=== PATIENT | male | born 1950 | race Caucasian/White ===

== ENCOUNTER 2018-04-28 10:22 | Inpatient (IN) | payer MEDICARE, OTHER ==
[~2018-04-28] VITALS: Ht 170.2 cm; Wt 88.9 kg
[2018-04-28] MEDS ORDERED: SODIUM CHLORIDE 0.9% 1000ML 1,000 ML IV STA (10:43)
[2018-04-28] MEDS ORDERED: ONDANSETRON HCL INJ 2MG/ML 2ML 2 MG/ML VIAL IV STA (10:43)
[2018-04-28] MEDS ORDERED: MORPHINE SULFATE INJ 4 MG/ML INJ 1ML IV ONE (10:55)
[2018-04-28 11:13] LABS: BASOPHILS # (AUTO) 0.1 (0.0-0.1); BASOPHILS % 0.5 % (0.0-1.0); EOSINOPHILS # (AUTO) 0.3 (0.0-0.4); EOSINOPHILS % 1.4 % (0.0-6.0); HEMATOCRIT 37.6 % (38.2-49.6); LYMPHOCYTES # (AUTO) 2.5 (1.0-3.2); LYMPHOCYTES % 12.9 % (18.0-39.1); MEAN CORPUSCULAR HGB CONC 34.6 g/dL (31-35); MEAN CORPUSCULAR VOLUME 89.5 fL (81-99); MONOCYTES # (AUTO) 1.5 (0.2-0.8); MONOCYTES % 7.9 % (4.4-11.3); NEUTROPHILS # (AUTO) 14.5 (2.1-6.9); NEUTROPHILS % 76.1 % (38.7-80.0); PLATELET COUNT 407 x10e3/uL (140-360); RED CELL DISTRIBUTION WIDTH 12.9 % (11.7-14.4)
[2018-04-28] MEDS ORDERED: PLAVIX75 MG PO (11:18)
[2018-04-28] MEDS ORDERED: LISINOPRIL10 MG PO (11:18)
[2018-04-28 11:22] LABS: INR 0.85; PROTHROMBIN TIME 12.4 seconds (11.9-14.5)
[2018-04-28 11:23] LABS: PARTIAL THROMBOPLASTIN TIME 25.7 seconds (23.8-35.5)
[2018-04-28 11:32] LABS: ALANINE AMINOTRANSFERASE 22 IU/L (0-55); ALBUMIN 3.3 g/dL (3.5-5.0); ALBUMIN/GLOBULIN RATIO 0.8 (0.8-2.0); ALKALINE PHOSPHATASE 57 IU/L (40-150); ANION GAP 18.9 mmol/L (8-16); BLOOD UREA NITROGEN 26 mg/dL (7-26); BUN/CREATININE RATIO 30 (6-25); CALCIUM 9.9 mg/dL (8.4-10.2); CARBON DIOXIDE 28 mmol/L (22-29); CHLORIDE 97 mmol/L (98-107); CREATINE KINASE 171 IU/L (30-200); CREATININE, SERUM 0.86 mg/dL (0.72-1.25); EST GLOMERULAR FILTRATION RATE > 60 ML/MIN (60-); GLUCOSE 129 mg/dL (74-118); SODIUM 142 mmol/L (136-145)
[2018-04-28 11:33] LABS: CHOL/HDL RATIO 3.4 (3.9-4.7)
[2018-04-28 11:34] LABS: POTASSIUM 1.9 mmol/L (3.5-5.1)
--- NOTE | 2018-04-28 11:34 | NUR ---
NOTIFIED DR MONTANA K+ 1.9
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
[2018-04-28] MEDS ORDERED: POTASSIUM CHLORIDE 10MEQ/100ML 10 MEQ in POTASSIUM CHLORIDE 10MEQ/100ML 100 ML IV ONE (12:12)
--- NOTE | 2018-04-28 12:12 | NUR ---
NOTIFIED DR MONTANA REPEAT POTASSIUM IS 2.0
[2018-04-28] MEDS ORDERED: POTASSIUM CHLORIDE 20MEQ/15ML UDC NG ONE (12:15)
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
[2018-04-28] MEDS ORDERED: POTASSIUM CHLORIDE 20MEQ/15ML UDC PO ONE ×2 (12:55→14:30)
[2018-04-28] MEDS ORDERED: SODIUM CHLORIDE FLUSH 10 ML SYR INJ PRN (13:15)
[2018-04-28] MEDS ORDERED: MORPHINE SULFATE INJ 4 MG/ML INJ 1ML IV PRN (13:15)
[2018-04-28] MEDS ORDERED: ONDANSETRON HCL INJ 2MG/ML 2ML 2 MG/ML VIAL IV PRN (13:15)
[2018-04-28] MEDS: POTASSIUM CHLORIDE 10MEQ/100ML 100 ML IV SCH ×4 (13:17→18:11)
[2018-04-28] MEDS ORDERED: KETOROLAC TROMETHAMINE 30 MG/ML VIAL IV PRN ×2 (14:30→18:30)
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
[2018-04-28 15:09] VITALS: BP 102/59
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
[2018-04-28 15:27] VITALS: BP 102/59
[2018-04-28 15:35] VITALS: BP 102/59
[2018-04-28] MEDS ORDERED: IOPAMIDOL 370 MG/ML 200 ML INFUS..BTL INJ ONE (17:11)
[2018-04-28] MEDS ORDERED: POTASSIUM CHLORIDE 20 MEQ TAB CR PO NR (18:30)
[2018-04-28] MEDS ORDERED: KETOROLAC TROMETHAMINE 30 MG/ML VIAL IV NR (18:30)
--- NOTE | 2018-04-28 19:10 | NUR ---
Report given to oncoming shift and walking rounds done. Call hodge within reach.
[2018-04-28 19:24] LABS: ANION GAP 14.2 mmol/L (8-16); BLOOD UREA NITROGEN 25 mg/dL (7-26); BUN/CREATININE RATIO 32 (6-25); CALCIUM 8.7 mg/dL (8.4-10.2); CARBON DIOXIDE 27 mmol/L (22-29); CHLORIDE 102 mmol/L (98-107); CREATININE, SERUM 0.78 mg/dL (0.72-1.25); EST GLOMERULAR FILTRATION RATE > 60 ML/MIN (60-); GLUCOSE 89 mg/dL (74-118); POTASSIUM 3.2 mmol/L (3.5-5.1); SODIUM 140 mmol/L (136-145)
[2018-04-28 19:37] LABS: CREATINE KINASE 456 IU/L (30-200)
[2018-04-28 20:00] VITALS: BP 81/52
--- NOTE | 2018-04-28 20:01 | NUR ---
Dr. Niesha Reed notified of elevated CK and CK-MB
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
[2018-04-28] MEDS: TRAMADOL HCL 50 MG TAB PO PRN (23:12)
[2018-04-29] VITALS (16 sets, daily range): BP systolic 92–106; BP diastolic 51–67
[2018-04-29] MEDS ORDERED: SODIUM CHLORIDE 0.9% 1000ML 1,000 ML ONE ×2 (03:39→06:57)
[2018-04-29 05:11] LABS: BASOPHILS % 0.3 % (0.0-1.0); EOSINOPHILS # (AUTO) 0.2 (0.0-0.4); EOSINOPHILS % 1.4 % (0.0-6.0); HEMATOCRIT 30.8 % (38.2-49.6); LYMPHOCYTES # (AUTO) 1.9 (1.0-3.2); LYMPHOCYTES % 13.6 % (18.0-39.1); MEAN CORPUSCULAR HEMOGLOBIN 30.5 pg (28-32); MEAN CORPUSCULAR HGB CONC 33.4 g/dL (31-35); MEAN CORPUSCULAR VOLUME 91.1 fL (81-99); MONOCYTES # (AUTO) 1.5 (0.2-0.8); MONOCYTES % 10.8 % (4.4-11.3); NEUTROPHILS # (AUTO) 10.2 (2.1-6.9); NEUTROPHILS % 73.5 % (38.7-80.0); PLATELET COUNT 281 x10e3/uL (140-360); RED BLOOD COUNT 3.38 x10e6/uL (4.3-5.7); RED CELL DISTRIBUTION WIDTH 13.2 % (11.7-14.4)
[2018-04-29] MEDS: TRAMADOL HCL 50 MG TAB PO PRN ×3 (05:19→18:54)
[2018-04-29] MEDS: KETOROLAC TROMETHAMINE 30 MG/ML VIAL IV SCH ×5 (05:19→18:54)
[2018-04-29 05:31] LABS: HEMOGLOBIN 10.3 g/dL (14.0-18.0)
[2018-04-29 05:55] LABS: ANION GAP 11.8 mmol/L (8-16); BLOOD UREA NITROGEN 23 mg/dL (7-26); BUN/CREATININE RATIO 31 (6-25); CALCIUM 8.2 mg/dL (8.4-10.2); CARBON DIOXIDE 27 mmol/L (22-29); CHLORIDE 103 mmol/L (98-107); CREATININE, SERUM 0.75 mg/dL (0.72-1.25); EST GLOMERULAR FILTRATION RATE > 60 ML/MIN (60-); GLUCOSE 77 mg/dL (74-118); SODIUM 139 mmol/L (136-145)
[2018-04-29 05:58] LABS: POTASSIUM 2.8 mmol/L (3.5-5.1)
--- NOTE | 2018-04-29 06:10 | NUR ---
NOTIFIED PATIENT OF 2.8 K+ AND LEFT MESSAGE FOR CALLBACK WITH DR. Ten ISABEL'S ANSWERING SERVICE. WAITING FOR RESPONSE.
[2018-04-29 06:17] LABS: CREATINE KINASE 384 IU/L (30-200)
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
[2018-04-29] MEDS ORDERED: LIDOCAINE HCL 2% LOCAL 20 ML VIAL ONE (06:50)
[2018-04-29] MEDS ORDERED: IOPAMIDOL 370 MG/ML 200 ML INFUS..BTL INJ ONE ×2 (06:50→20:31)
[2018-04-29] MEDS ORDERED: HEPARIN SOD/SOD CHLORIDE 2,000 ML ONE (06:50)
[2018-04-29] MEDS ORDERED: HEPARIN SOD (PORCINE) 1000 UNIT/ML 30ML ONE (06:56)
[2018-04-29] MEDS ORDERED: FENTANYL CITRATE/PF 100MCG/2 ML INJ ONE (06:56)
[2018-04-29] MEDS ORDERED: MIDAZOLAM HCL 2 MG/2 ML VIAL ONE (06:56)
[2018-04-29] MEDS ORDERED: NITROGLYCERIN/D5W 200 MCG/ML 250 ML ONE (06:57)
[2018-04-29] MEDS ORDERED: VERAPAMIL HCL 2.5 MG/ML 2 ML VIAL ONE (06:57)
--- NOTE | 2018-04-29 07:29 | NUR ---
patient off unit for procedure. called back, aware of K. new orders recvd
[2018-04-29] MEDS ORDERED: MORPHINE SULFATE INJ 4 MG/ML INJ 1ML IV PRN (08:00)
[2018-04-29] MEDS ORDERED: ONDANSETRON HCL INJ 2MG/ML 2ML 2 MG/ML VIAL IV PRN (08:00)
[2018-04-29] MEDS ORDERED: HYDROCODONE/APAP 5MG-325MG TAB PO PRN (08:00)
[2018-04-29] MEDS ORDERED: POTASSIUM CHLORIDE 10MEQ EA PO NR ×2 (08:15→11:15)
--- NOTE | 2018-04-29 08:16 | Operative Report ---
DATE OF PROCEDURE: April 29, 2018 INDICATIONS: Unstable angina. PROCEDURES PERFORMED 1. Left heart catheterization, selective coronary angiography. 2. Deployment of right wrist transradial band. COMPLICATIONS: None. RECOMMENDATIONS: Medical therapy. Access was obtained in the right radial artery using ultrasound guidance. A 5-Rwandan sheath was placed. Diagnostic coronary angiogram revealed patent left main. Left anterior descending artery proximal 50% to 60% with aneurysmal segment. Distal left anterior descending artery had tandem 90% stenosis, 1.5-mm vessel. Circumflex moderate 30% to 50% stenosis. Right coronary artery moderate 30% to 50% stenosis. No intervention was deemed necessary. Right wrist sheath was removed and TR band applied. Patient transferred to the floor in stable condition. Job#: [id number]
[2018-04-29] MEDS ORDERED: POTASSIUM CHLORIDE 20MEQ/100ML 300 ML IV ONE (08:30)
--- NOTE | 2018-04-29 08:41 | Progress Note ---
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 He underwent coronary angiography today with moderate coronary artery disease. PHYSICAL EXAMINATION: VITAL SIGNS: Afebrile, heart rate 65, blood pressure 92/55, O2 sat 97%. CARDIOVASCULAR: Regular rhythm. No murmurs or gallops. LUNGS: Clear to auscultation bilaterally. ABDOMEN: Soft. Hemoglobin is 10.3, WBC count is now 13,000. Potassium 2.8. Cardiac enzymes are negative. CPK is elevated. Imaging of his chest was reviewed. ASSESSMENT: Moderate coronary artery disease. RECOMMENDATIONS: Initiation of statin therapy and aspirin, followed by evaluation for anemia. I thank Dr. Reed for this consultation. Job#: [id number]
--- NOTE | 2018-04-29 09:00 | NUR ---
pt still off unit
--- NOTE | 2018-04-29 09:15 | NUR ---
0915am Received report from Steph RN Ranch Manager nurse Identifierx2 checked. [facility] medical rx. Rt arm iv site w/o s/s infiltration. Back to baseline PAULETTE remains allittle drowsy 0x4. Resp shallow and regular. 98% sat on room air. Abd soft and non tender denies necessary to defecate or urinate. Abram femoral pulses present. Rt TRband in titration mode with pos 7cc. no signs bleeding or hematoma, Positive radial pulse, Call kitchen for "regular lent diet" no meat or milk products. Denies c/o CP or SOB pt is in sinus bradycardia no ectopics vs stable.
--- NOTE | 2018-04-29 09:45 | NUR ---
0945 TR band titration completed. No signs of bleeding or hematoma. sterile 2x2 and tegederm with coban Arm splint in place for pt safety.Called report to Luz DAVALOS vs stable has meal sent to floor face to face report to nurse on arrival to 184. Transferred per bed with zoll and tele box in place. Report to design technician on arrival to floor care. Pt give call light ,side rails up and requested to call for nurse 1st ambulation with caution no pressure to right wrist. Alexander DAVALOS ,Acid Washer Operator Recovery Nurse
--- NOTE | 2018-04-29 10:02 | NUR ---
pt returned from cath, alert and oriented. fatigued s/p cath. radial site CDI, pt aware to limit use on right hand. will continue to monitor.
[2018-04-29 10:13] LABS: CHOL/HDL RATIO 3.2 (3.9-4.7)
[2018-04-29 10:34] LABS: FREE THYROXINE INDEX 2.7168 (1.4-3.8); THYROID STIMULATING HORMONE 0.813 uIU/mL (0.350-4.940)
[2018-04-29] MEDS: SODIUM CHLORIDE 0.9% 1000ML 1,000 ML IV SCH ×2 (11:11→18:12)
--- NOTE | 2018-04-29 11:23 | NUR ---
dr holcomb on unit, aware of pt vs. 250 bolus ordered and admin.
[2018-04-29 11:28] LABS: % IRON SATURATION 18 % (15-50); IRON 54 ug/dL (65-175); TOTAL IRON BINDING CAPACITY 294 ug/dL (261-478); TRANSFERRIN 210 mg/dL (174-364)
[2018-04-29] MEDS ORDERED: POTASSIUM CHLORIDE 20 MEQ TAB CR PO STA (15:34)
--- NOTE | 2018-04-29 15:41 | NUR ---
CASE MANAGEMENT INITIAL ASSESSMENT Supervisor Assembly Department to bedside to discuss plan of care with patient/family. CM/SW role and care transitions discussed. Anticipated discharge plan discussed along with duration of care. CM/SW discussed patients right to make decisions in care. CM/SW work hours given. Patient lives: IN OWN HOME WITH FAMILY Admit/Transfer: VIA ED FROM HOME POA/Emergency contact: BROTHER ERVIN WEND Current/Previous Home Health: NONE PCP/Follow-up Care: ERVIN ISABEL Current/Previous DME: NONE Other Services: NONE Employment Status: [employer] Areas of Concerns: NONE Referral Needs: NONE Education Needs: NONE IMM/YOO given and signed (if applicable): YOO Goal for discharge: RETURN HOME INDEPENDENTLY CM/SW left business card at the bedside with contact information. Name and number was also written on the patients whiteboard. Patient verbalized understanding of discussion. CM will follow-up with ongoing discharge and transition of care needs.
--- NOTE | 2018-04-29 18:43 | NUR ---
dr mckay aware on new K level 3.8, stated ok but wants ct results before possible dc. pt wanting to dc
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
[2018-04-29] MEDS ORDERED: CRESTOR10 MG PO (19:39)
[2018-04-29] MEDS ORDERED: ULTRAM50 MG PO (19:43)
[2018-04-29] MEDS ORDERED: NAPROXEN250 MG PO (19:44)
[2018-04-29] MEDS ORDERED: POTASSIUM CHLO20 ME1 PO (19:45)
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
[2018-04-29] MEDS ORDERED: SODIUM CHLORIDE 0.9% 50ML 50 ML ONE (20:31)
[2018-04-29] MEDS ORDERED: ATORVASTATIN 20 MG TAB PO SCH (21:00)
[2018-04-29] MEDS ORDERED: CRESTOR 10MG PO SCH (21:00)
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
== END 2018-04-29 20:20 | disposition home or self-care (01) | DRG 287 ==
LOC: ER 10:22 → IMCU 15:14 → OBSVTOIN 04-29 12:21
PROC: 4A023N7 Measurement of Cardiac Sampling and Pressure, Left Heart, Percutaneous Approach (ICD-10-PCS; principal; 2018-04-29)
PROC: B2111ZZ Fluoroscopy of Multiple Coronary Arteries using Low Osmolar Contrast (ICD-10-PCS; 2018-04-29)
DX: I25.110 Atherosclerotic heart disease of native coronary artery with unstable angina pectoris (principal); S22.21XA Fracture of manubrium, initial encounter for closed fracture; E87.6 Hypokalemia; V43.52XA Car driver injured in collision with other type car in traffic accident, initial encounter; Y92.410 Unspecified street and highway as the place of occurrence of the external cause; K52.9 Noninfective gastroenteritis and colitis, unspecified; S29.9XXA Unspecified injury of thorax, initial encounter; E88.09 Other disorders of plasma-protein metabolism, not elsewhere classified; M47.9 Spondylosis, unspecified; M50.31 Other cervical disc degeneration, high cervical region; D72.828 Other elevated white blood cell count; R77.1 Abnormality of globulin; I87.8 Other specified disorders of veins; D50.0 Iron deficiency anemia secondary to blood loss (chronic); D64.9 Anemia, unspecified
CPT/HCPCS: 36415; 71275; 72125; 74177; 80048; 80053; 80061; 82550; 82553; 82607; 83036; 83540; 83735; 84132; 84436; 84443; 84466; 84479; 84484; 85025; 85610; 85651; 85730; 86039; 86140; 93005; 93306; 93454; 99284; C1887; G0378; J1644; J1885; J2001; J2250; J2270; J2405; J3480; J7030; Q9967

== ENCOUNTER 2020-05-27 21:44 | Inpatient (IN) | payer MEDICARE, BC ==
[~2020-05-27] VITALS: Ht 170.2 cm; Wt 88.9 kg
[~2020-05-27 21:44] MED LIST: CRESTOR10 MG PO; LISINOPRIL10 MG PO; NAPROXEN250 MG PO; PLAVIX75 MG PO; POTASSIUM CHLO20 ME1 PO; ULTRAM50 MG PO
[2020-05-27 21:59] LABS: BASOPHILS % 0.5 % (0.0-1.0); EOSINOPHILS % 0.4 % (0.0-6.0); HEMATOCRIT 35.4 % (38.2-49.6); HEMOGLOBIN 11.8 g/dL (14.0-18.0); LYMPHOCYTES # (AUTO) 1.3 (1.0-3.2); LYMPHOCYTES % 16.9 % (18.0-39.1); MEAN CORPUSCULAR HEMOGLOBIN 30.6 pg (28-32); MEAN CORPUSCULAR HGB CONC 33.3 g/dL (31-35); MEAN CORPUSCULAR VOLUME 91.9 fL (81-99); MONOCYTES # (AUTO) 2.2 (0.2-0.8); MONOCYTES % 28.1 % (4.4-11.3); NEUTROPHILS # (AUTO) 4.2 (2.1-6.9); NEUTROPHILS % 53.7 % (38.7-80.0); PLATELET COUNT 179 x10e3/uL (140-360); RED BLOOD COUNT 3.85 x10e6/uL (4.3-5.7); RED CELL DISTRIBUTION WIDTH 13.7 % (11.7-14.4)
[2020-05-27] MEDS ORDERED: REMDESIVIR 200MG/NS 100ML 200 MG in SODIUM CHLORIDE 0.9% 100 ML 100 ML IV ONE (22:00)
[2020-05-27] MEDS ORDERED: ACETAMINOPHEN 325 MG TAB PO PRN (22:00)
[2020-05-27] MEDS ORDERED: CEFTRIAXONE SOD 1 GM/NS 50 ML 50 ML IV ONE (22:00)
[2020-05-27] MEDS ORDERED: ASPIRIN 81 MG CHEW TAB PO ONE (22:00)
[2020-05-27] MEDS ORDERED: BAMLANIVIMAB 700 MG/20 ML VIAL IV ONE (22:00)
[2020-05-27 22:18] LABS: CREATINE KINASE MB < 1.00 ng/mL (0-4.3)
[2020-05-27 22:26] LABS: ALANINE AMINOTRANSFERASE 11 IU/L (0-55); ALBUMIN 3.2 g/dL (3.5-5.0); ALKALINE PHOSPHATASE 41 IU/L (40-150); ANION GAP 11.5 mmol/L (8-16); BLOOD UREA NITROGEN 17 mg/dL (7-26); BUN/CREATININE RATIO 20 (6-25); CALCIUM 8.1 mg/dL (8.4-10.2); CARBON DIOXIDE 26 mmol/L (22-29); CHLORIDE 106 mmol/L (98-107); CREATINE KINASE 74 IU/L (30-200); CREATININE, SERUM 0.83 mg/dL (0.72-1.25); EST GLOMERULAR FILTRATION RATE > 60 ML/MIN (60-); GLUCOSE 91 mg/dL (74-118); POTASSIUM 3.5 mmol/L (3.5-5.1); SODIUM 140 mmol/L (136-145)
[2020-05-28] VITALS (10 sets, daily range): BP systolic 105–139; BP diastolic 53–82
[2020-05-28] MEDS ORDERED: SODIUM CHLORIDE 0.9% 250ML 250 ML ONE (01:04)
[2020-05-28] MEDS: PIPER-TAZ 3.375 GM 50 ML IV SCH ×5 (01:06→23:57)
[2020-05-28] MEDS: NAPROXEN 250 MG TAB PO SCH ×3 (01:16→23:57)
[2020-05-28 05:50] LABS: BASOPHILS % 0.4 % (0.0-1.0); HEMATOCRIT 39.6 % (38.2-49.6); HEMOGLOBIN 12.6 g/dL (14.0-18.0); LYMPHOCYTES # (AUTO) 0.9 (1.0-3.2); LYMPHOCYTES % 10.3 % (18.0-39.1); MEAN CORPUSCULAR HEMOGLOBIN 30.4 pg (28-32); MEAN CORPUSCULAR HGB CONC 31.8 g/dL (31-35); MEAN CORPUSCULAR VOLUME 95.7 fL (81-99); MONOCYTES # (AUTO) 0.4 (0.2-0.8); MONOCYTES % 4.2 % (4.4-11.3); NEUTROPHILS # (AUTO) 7.3 (2.1-6.9); NEUTROPHILS % 84.9 % (38.7-80.0); PLATELET COUNT 175 x10e3/uL (140-360); RED BLOOD COUNT 4.14 x10e6/uL (4.3-5.7); RED CELL DISTRIBUTION WIDTH 13.7 % (11.7-14.4)
[2020-05-28] MEDS: TRAMADOL HCL 50 MG TAB PO SCH ×4 (06:00→23:57)
[2020-05-28 06:34] LABS: ALANINE AMINOTRANSFERASE 12 IU/L (0-55); ALBUMIN 3.2 g/dL (3.5-5.0); ALKALINE PHOSPHATASE 38 IU/L (40-150); ANION GAP 12.6 mmol/L (8-16); BLOOD UREA NITROGEN 16 mg/dL (7-26); BUN/CREATININE RATIO 21 (6-25); CALCIUM 8.2 mg/dL (8.4-10.2); CARBON DIOXIDE 25 mmol/L (22-29); CHLORIDE 107 mmol/L (98-107); CREATININE, SERUM 0.76 mg/dL (0.72-1.25); EST GLOMERULAR FILTRATION RATE > 60 ML/MIN (60-); GLUCOSE 152 mg/dL (74-118); POTASSIUM 3.6 mmol/L (3.5-5.1); SODIUM 141 mmol/L (136-145)
[2020-05-28] MEDS ORDERED: REMDESIVIR 200MG/NS 100ML 200 MG in SODIUM CHLORIDE 0.9% 100 ML 100 ML IV ONE (07:00)
[2020-05-28] MEDS ORDERED: REMDESIVIR 100MG/NS 100ML 100 MG in SODIUM CHLORIDE 0.9% 100 ML 100 ML IV SCH (07:00)
[2020-05-28 07:39] LABS: CREATINE KINASE MB 0.5 ng/mL (0-5.0)
[2020-05-28] MEDS: POTASSIUM CHLORIDE 20 MEQ TAB CR PO SCH (08:44)
[2020-05-28] MEDS: CLOPIDOGREL BISULFATE 75 MG TAB PO SCH (08:44)
[2020-05-28] MEDS ORDERED: LISINOPRIL 10 MG TAB PO SCH (09:00)
[2020-05-28] MEDS ORDERED: SIMVASTATIN 20 MG TAB PO SCH (09:00)
[2020-05-28] MEDS ORDERED: DEXAMETHASONE SOD PHOS 10 MG/1 ML VIAL IV ONE (09:00)
[2020-05-28] MEDS: AZITHROMYCIN 500MG/NS 250 ML 250 ML IV SCH (10:09)
[2020-05-28] MEDS ORDERED: DEXAMETHASONE SOD PHOS INJ 4 MG/ML VIAL IV SCH (10:30)
[2020-05-28] MEDS ORDERED: GADOBENATE DIMEGLUMINE 1 ML IV ONE (12:39)
[2020-05-28 15:34] LABS: CREATINE KINASE MB 0.7 ng/mL (0-5.0)
[2020-05-28] MEDS: ASPIRIN 81 MG CHEW TAB PO SCH (17:40)
[2020-05-28] MEDS: ENOXAPARIN SOD INJ 40 MG/0.4 ML SYR SC SCH (17:40)
[2020-05-28] MEDS: DEXAMETHASONE SOD PHOS 10 MG/1 ML VIAL IV SCH (22:36)
[2020-05-29] VITALS (8 sets, daily range): BP systolic 127–146; BP diastolic 75–88
[2020-05-29] MEDS ORDERED: LISINOPRIL 10 MG TAB PO ONE ×3 (00:45→21:45)
[2020-05-29] MEDS: TRAMADOL HCL 50 MG TAB PO SCH ×4 (06:00→23:55)
[2020-05-29] MEDS: PIPER-TAZ 3.375 GM 50 ML IV SCH ×4 (06:01→23:55)
[2020-05-29] MEDS: REMDESIVIR 100MG/NS 100ML 100 MG IV SCH (07:01)
[2020-05-29] MEDS: ASPIRIN 81 MG CHEW TAB PO SCH (09:09)
[2020-05-29] MEDS: CLOPIDOGREL BISULFATE 75 MG TAB PO SCH (09:10)
[2020-05-29] MEDS: POTASSIUM CHLORIDE 20 MEQ TAB CR PO SCH (09:10)
[2020-05-29] MEDS: LISINOPRIL 10 MG TAB PO SCH ×2 (09:11→17:02)
[2020-05-29] MEDS: AZITHROMYCIN 500MG/NS 250 ML 250 ML IV SCH (09:11)
[2020-05-29] MEDS: DEXAMETHASONE SOD PHOS 10 MG/1 ML VIAL IV SCH ×2 (09:13→20:50)
[2020-05-29] MEDS: CHOLECALCIFEROL 1,000 UNIT TAB PO SCH (10:12)
[2020-05-29] MEDS: ASCORBIC ACID 500 MG TAB PO SCH ×2 (10:12→17:02)
[2020-05-29] MEDS: ZINC SULFATE 50 MG CAP PO SCH (10:13)
[2020-05-29] MEDS: FAMOTIDINE 20 MG/2 ML VIAL IV SCH ×2 (12:41→20:50)
[2020-05-29] MEDS: NAPROXEN 250 MG TAB PO SCH ×2 (12:41→23:55)
[2020-05-29] MEDS: ENOXAPARIN SOD INJ 40 MG/0.4 ML SYR SC SCH (17:02)
[2020-05-29] MEDS ORDERED: SIMVASTATIN 20 MG TAB PO SCH (21:00)
[2020-05-29] MEDS: CRESTOR 10MG PO SCH (21:58)
[2020-05-30] VITALS (8 sets, daily range): BP systolic 125–166; BP diastolic 79–100
[2020-05-30] MEDS: TRAMADOL HCL 50 MG TAB PO SCH ×3 (05:47→17:48)
[2020-05-30] MEDS: PIPER-TAZ 3.375 GM 50 ML IV SCH ×3 (06:04→17:48)
[2020-05-30] MEDS: REMDESIVIR 100MG/NS 100ML 100 MG IV SCH (06:35)
[2020-05-30 07:10] LABS: BASOPHILS % 0.1 % (0.0-1.0); HEMATOCRIT 39.8 % (38.2-49.6); HEMOGLOBIN 12.9 g/dL (14.0-18.0); LYMPHOCYTES # (AUTO) 0.9 (1.0-3.2); LYMPHOCYTES % 6.2 % (18.0-39.1); MEAN CORPUSCULAR HEMOGLOBIN 30.6 pg (28-32); MEAN CORPUSCULAR HGB CONC 32.4 g/dL (31-35); MEAN CORPUSCULAR VOLUME 94.5 fL (81-99); MONOCYTES # (AUTO) 0.8 (0.2-0.8); MONOCYTES % 5.2 % (4.4-11.3); NEUTROPHILS # (AUTO) 12.7 (2.1-6.9); NEUTROPHILS % 87.9 % (38.7-80.0); PLATELET COUNT 85 x10e3/uL (140-360); RED BLOOD COUNT 4.21 x10e6/uL (4.3-5.7); RED CELL DISTRIBUTION WIDTH 13.5 % (11.7-14.4)
[2020-05-30 07:36] LABS: ANION GAP 12.8 mmol/L (8-16); BLOOD UREA NITROGEN 29 mg/dL (7-26); BUN/CREATININE RATIO 38 (6-25); CALCIUM 8.2 mg/dL (8.4-10.2); CARBON DIOXIDE 25 mmol/L (22-29); CHLORIDE 107 mmol/L (98-107); CHOL/HDL RATIO 2.8 (3.9-4.7); CREATININE, SERUM 0.76 mg/dL (0.72-1.25); EST GLOMERULAR FILTRATION RATE > 60 ML/MIN (60-); GLUCOSE 119 mg/dL (74-118); POTASSIUM 3.8 mmol/L (3.5-5.1); SODIUM 141 mmol/L (136-145)
[2020-05-30 07:54] LABS: B-TYPE NATRIURETIC PEPTIDE2 328.4 pg/mL (0-100)
[2020-05-30 07:58] LABS: FERRITIN 135.87 ng/mL (21.81-274.66)
[2020-05-30 08:12] LABS: FREE THYROXINE INDEX 2.2098 (1.4-3.8); THYROID STIMULATING HORMONE 0.091 uIU/mL (0.350-4.940)
[2020-05-30 08:13] LABS: FREE T4 (FREE THYROXINE) 1.05 ng/dL (0.8-1.8); THYROID STIMULATING HORMONE 0.092 uIU/mL (0.350-4.940)
[2020-05-30] MEDS: ASPIRIN 81 MG CHEW TAB PO SCH (09:15)
[2020-05-30] MEDS: FAMOTIDINE 20 MG/2 ML VIAL IV SCH ×2 (09:15→20:47)
[2020-05-30] MEDS: DEXAMETHASONE SOD PHOS 10 MG/1 ML VIAL IV SCH ×2 (09:15→20:47)
[2020-05-30] MEDS: CLOPIDOGREL BISULFATE 75 MG TAB PO SCH (09:15)
[2020-05-30] MEDS: POTASSIUM CHLORIDE 20 MEQ TAB CR PO SCH (09:15)
[2020-05-30] MEDS: CHOLECALCIFEROL 1,000 UNIT TAB PO SCH (09:16)
[2020-05-30] MEDS: ZINC SULFATE 50 MG CAP PO SCH (09:16)
[2020-05-30] MEDS: ASCORBIC ACID 500 MG TAB PO SCH ×2 (09:16→17:48)
[2020-05-30] MEDS: LISINOPRIL 10 MG TAB PO SCH ×3 (09:16→17:48)
[2020-05-30 09:31] LABS: ALANINE AMINOTRANSFERASE 16 IU/L (0-55); ALBUMIN 3.3 g/dL (3.5-5.0); ALBUMIN/GLOBULIN RATIO 0.9 (0.8-2.0); ALKALINE PHOSPHATASE 35 IU/L (40-150); ANION GAP 15.7 mmol/L (8-16); BLOOD UREA NITROGEN 29 mg/dL (7-26); BUN/CREATININE RATIO 38 (6-25); CALCIUM 8.2 mg/dL (8.4-10.2); CARBON DIOXIDE 22 mmol/L (22-29); CHLORIDE 108 mmol/L (98-107); CREATININE, SERUM 0.77 mg/dL (0.72-1.25); EST GLOMERULAR FILTRATION RATE > 60 ML/MIN (60-); GLUCOSE 121 mg/dL (74-118); POTASSIUM 3.7 mmol/L (3.5-5.1); SODIUM 142 mmol/L (136-145)
[2020-05-30] MEDS: NAPROXEN 250 MG TAB PO SCH (11:21)
[2020-05-30] MEDS: AZITHROMYCIN 500MG/NS 250 ML 250 ML IV SCH (11:21)
[2020-05-30] MEDS: ENOXAPARIN SOD INJ 40 MG/0.4 ML SYR SC SCH (17:48)
[2020-05-30] MEDS ORDERED: SODIUM CHLORIDE 0.9% 50ML 50 ML ONE (19:36)
[2020-05-30] MEDS ORDERED: IOPAMIDOL 370 MG/ML 200 ML INFUS..BTL INJ ONE (19:36)
[2020-05-30] MEDS ORDERED: AMLODIPINE BESYLATE 5 MG TAB PO ONE (20:30)
[2020-05-30] MEDS: CRESTOR 10MG PO SCH (20:47)
[2020-05-31] VITALS: BP 133/90
[2020-05-31] MEDS: NAPROXEN 250 MG TAB PO SCH ×2 (00:15→12:12)
[2020-05-31 04:00] VITALS: BP 147/78
[2020-05-31 05:32] LABS: BASOPHILS % 0.1 % (0.0-1.0); HEMATOCRIT 35.6 % (38.2-49.6); HEMOGLOBIN 11.8 g/dL (14.0-18.0); LYMPHOCYTES # (AUTO) 0.9 (1.0-3.2); LYMPHOCYTES % 8.6 % (18.0-39.1); MEAN CORPUSCULAR HEMOGLOBIN 30.6 pg (28-32); MEAN CORPUSCULAR HGB CONC 33.1 g/dL (31-35); MEAN CORPUSCULAR VOLUME 92.5 fL (81-99); MONOCYTES # (AUTO) 0.7 (0.2-0.8); MONOCYTES % 6.8 % (4.4-11.3); PLATELET COUNT 188 x10e3/uL (140-360); RED BLOOD COUNT 3.85 x10e6/uL (4.3-5.7); RED CELL DISTRIBUTION WIDTH 13.3 % (11.7-14.4)
[2020-05-31 05:57] LABS: ANION GAP 11.4 mmol/L (8-16); BLOOD UREA NITROGEN 26 mg/dL (7-26); BUN/CREATININE RATIO 37 (6-25); CALCIUM 7.6 mg/dL (8.4-10.2); CARBON DIOXIDE 22 mmol/L (22-29); CHLORIDE 109 mmol/L (98-107); EST GLOMERULAR FILTRATION RATE > 60 ML/MIN (60-); GLUCOSE 135 mg/dL (74-118); POTASSIUM 3.4 mmol/L (3.5-5.1); SODIUM 139 mmol/L (136-145)
[2020-05-31] MEDS: PIPER-TAZ 3.375 GM 50 ML IV SCH ×3 (06:00→12:11)
[2020-05-31] MEDS: TRAMADOL HCL 50 MG TAB PO SCH ×3 (06:00→12:11)
[2020-05-31] MEDS: REMDESIVIR 100MG/NS 100ML 100 MG IV SCH (07:26)
[2020-05-31 08:18] VITALS: BP 147/78
[2020-05-31] MEDS ORDERED: FUROSEMIDE INJ 10 MG/ML 4 ML VIAL IV ONE (08:45)
[2020-05-31] MEDS: DEXAMETHASONE SOD PHOS 10 MG/1 ML VIAL IV SCH (08:53)
[2020-05-31] MEDS: FAMOTIDINE 20 MG/2 ML VIAL IV SCH (08:53)
[2020-05-31] MEDS: ZINC SULFATE 50 MG CAP PO SCH (08:53)
[2020-05-31] MEDS: CLOPIDOGREL BISULFATE 75 MG TAB PO SCH (08:53)
[2020-05-31] MEDS: ASPIRIN 81 MG CHEW TAB PO SCH (08:53)
[2020-05-31] MEDS: AZITHROMYCIN 500MG/NS 250 ML 250 ML IV SCH (08:53)
[2020-05-31] MEDS: POTASSIUM CHLORIDE 20 MEQ TAB CR PO SCH (08:53)
[2020-05-31] MEDS: CHOLECALCIFEROL 1,000 UNIT TAB PO SCH (08:53)
[2020-05-31] MEDS: LISINOPRIL 10 MG TAB PO SCH (08:54)
[2020-05-31] MEDS ORDERED: AMLODIPINE BESYLATE 5 MG TAB PO SCH (09:00)
[2020-05-31 09:02] VITALS: BP 129/75
[2020-05-31] MEDS: ASCORBIC ACID 500 MG TAB PO SCH (10:01)
[2020-05-31] MEDS ORDERED: POTASSIUM CHLORIDE 20 MEQ TAB CR PO ONE ×2 (10:30→12:00)
[2020-05-31 12:15] VITALS: BP 123/73
== END 2020-05-31 14:50 | disposition home or self-care (01) | DRG 177 ==
LOC: ER 21:47 → ERHOLD 22:38 → EEVIPCON 22:38 → IMCU 05-28 00:38
PROC: 8E0ZXY6 Isolation (ICD-10-PCS; principal; 2020-05-27)
PROC: XW033E5 Introduction of Remdesivir Anti-infective into Peripheral Vein, Percutaneous Approach, New Technology Group 5 (ICD-10-PCS; 2020-05-27)
DX: U07.1 COVID-19 (principal); J12.82 Pneumonia due to coronavirus disease 2019; J96.01 Acute respiratory failure with hypoxia; I25.10 Atherosclerotic heart disease of native coronary artery without angina pectoris; I10 Essential (primary) hypertension; M17.0 Bilateral primary osteoarthritis of knee; I11.9 Hypertensive heart disease without heart failure
CPT/HCPCS: 36415; 71045; 74178; 80048; 80053; 80061; 82270; 82306; 82550; 82553; 82607; 82728; 82747; 83036; 83540; 83880; 84436; 84439; 84443; 84466; 84479; 84481; 84484; 85025; 85045; 86376; 93005; 99284; J0456; J0696; J1100; J1650; J1940; J2543; J7050; Q9967; U0002

== ENCOUNTER → 2021-02-03 | Outpatient (CLI) | payer MEDICARE, BC, OTHER | LOC: VACCPMC 15:07 | DX: Z23 Encounter for immunization (principal); Z20.822 Contact with and (suspected) exposure to COVID-19 ==

== ENCOUNTER → 2022-06-26 | Outpatient (CLI) | payer BC, MEDICARE ==
[2022-06-26 14:24] LABS: BASOPHILS # (AUTO) 0.1 (0.0-0.1); BASOPHILS % 0.8 % (0.0-1.0); EOSINOPHILS # (AUTO) 0.3 (0.0-0.4); EOSINOPHILS % 2.6 % (0.0-6.0); HEMATOCRIT 41.4 % (38.2-49.6); HEMOGLOBIN 12.8 g/dL (14.0-18.0); LYMPHOCYTES # (AUTO) 1.4 (1.0-3.2); LYMPHOCYTES % 13.1 % (18.0-39.1); MEAN CORPUSCULAR HEMOGLOBIN 30.8 pg (28-32); MEAN CORPUSCULAR HGB CONC 30.9 g/dL (31-35); MEAN CORPUSCULAR VOLUME 99.5 fL (81-99); MONOCYTES # (AUTO) 1.2 (0.2-0.8); MONOCYTES % 11.5 % (4.4-11.3); NEUTROPHILS # (AUTO) 7.5 (2.1-6.9); NEUTROPHILS % 71.7 % (38.7-80.0); PLATELET COUNT 264 x10e3/uL (140-360); RED BLOOD COUNT 4.16 x10e6/uL (4.3-5.7); RED CELL DISTRIBUTION WIDTH 12.5 % (11.7-14.4)
[2022-06-26 14:50] LABS: ALBUMIN 3.4 g/dL (3.5-5.0); ALBUMIN/GLOBULIN RATIO 0.9 (0.8-2.0); ANION GAP 11.5 mmol/L (8-16); CHOL/HDL RATIO 3.3 (3.9-4.7); CREATININE, SERUM 0.74 mg/dL (0.72-1.25); POTASSIUM 3.5 mmol/L (3.5-5.1)
[2022-06-26 14:52] LABS: CALCIUM 9.3 mg/dL (8.4-10.2)
[2022-06-27 02:25] LABS: % IRON SATURATION 16 % (15-50); IRON 66 ug/dL (65-175); TOTAL IRON BINDING CAPACITY 424 ug/dL (261-478); TRANSFERRIN 303 mg/dL (174-364)
== END ==
LOC: LAB 14:10
PROVIDERS: ATTEND Internal Medicine
DX: Z00.00 Encounter for general adult medical examination without abnormal findings (principal); R73.9 Hyperglycemia, unspecified
CPT/HCPCS: 36415; 80053; 80061; 82607; 82746; 83036; 83540; 84466; 85025; 85045

== ENCOUNTER → 2022-10-06 | Day surgery (SDC) | payer MEDICARE, BC ==
[2022-09-27 15:16] LABS: BASOPHILS # (AUTO) 0.2 (0.0-0.1); BASOPHILS % 0.9 % (0.0-1.0); EOSINOPHILS % 5.8 % (0.0-6.0); HEMATOCRIT 40.7 % (38.2-49.6); HEMOGLOBIN 13.3 g/dL (14.0-18.0); LYMPHOCYTES # (AUTO) 2.4 (1.0-3.2); LYMPHOCYTES % 13.6 % (18.0-39.1); MEAN CORPUSCULAR HEMOGLOBIN 30.7 pg (28-32); MEAN CORPUSCULAR HGB CONC 32.7 g/dL (31-35); MONOCYTES # (AUTO) 1.7 (0.2-0.8); MONOCYTES % 9.8 % (4.4-11.3); NEUTROPHILS # (AUTO) 12.1 (2.1-6.9); NEUTROPHILS % 69.4 % (38.7-80.0); PLATELET COUNT 261 x10e3/uL (140-360); RED BLOOD COUNT 4.33 x10e6/uL (4.3-5.7); RED CELL DISTRIBUTION WIDTH 14.1 % (11.7-14.4)
[2022-09-27 15:34] LABS: ALBUMIN 3.1 g/dL (3.5-5.0); ANION GAP 12.1 mmol/L (8-16); CALCIUM 9.1 mg/dL (8.4-10.2); CHOL/HDL RATIO 3.2 (3.9-4.7); CREATININE, SERUM 0.81 mg/dL (0.72-1.25); POTASSIUM 3.1 mmol/L (3.5-5.1)
[2022-10-06] VITALS (14 sets, daily range): BP systolic 113–153; BP diastolic 72–96; PULSE 57–68; RESP 10–18; TEMP 97.6; O2SAT 96–100
[~2022-10-06] VITALS: Ht 170.2 cm; Wt 90.7 kg
[~2022-10-06] MED LIST changes: +ALPRAZOLAM 0.5 MG TAB ONE; +ASPIRIN EC81 MG PO; +DIPHENHYDRAMINE HCL 25 MG CAP ONE; +FENTANYL CITRATE/PF 100MCG/2 ML INJ ONE; +HEPARIN SOD (PORCINE) 1000 UNIT/ML 30ML ONE; +HEPARIN SOD/SOD CHLORIDE 2,000 ML ONE; +IOPAMIDOL 370 MG/ML 100 ML INFUS..BTL INJ ONE; +LIDOCAINE HCL 2% LOCAL 20 ML VIAL ONE; +MIDAZOLAM HCL 2 MG/2 ML VIAL ONE; +NITROGLYCERIN/D5W 200 MCG/ML 250 ML ONE; +SODIUM CHLORIDE 0.9% 1000ML 1,000 ML ONE; +VERAPAMIL HCL 2.5 MG/ML 2 ML VIAL ONE
[2022-10-06 08:42] LABS: BASOPHILS # (AUTO) 0.1 (0.0-0.1); BASOPHILS % 0.9 % (0.0-1.0); EOSINOPHILS # (AUTO) 0.8 (0.0-0.4); HEMATOCRIT 39.5 % (38.2-49.6); LYMPHOCYTES # (AUTO) 1.3 (1.0-3.2); LYMPHOCYTES % 13.6 % (18.0-39.1); MEAN CORPUSCULAR HEMOGLOBIN 30.4 pg (28-32); MEAN CORPUSCULAR HGB CONC 32.9 g/dL (31-35); MEAN CORPUSCULAR VOLUME 92.3 fL (81-99); MONOCYTES # (AUTO) 1.2 (0.2-0.8); MONOCYTES % 11.7 % (4.4-11.3); NEUTROPHILS # (AUTO) 6.5 (2.1-6.9); NEUTROPHILS % 65.4 % (38.7-80.0); PLATELET COUNT 292 x10e3/uL (140-360); RED BLOOD COUNT 4.28 x10e6/uL (4.3-5.7); RED CELL DISTRIBUTION WIDTH 14.5 % (11.7-14.4)
[2022-10-06 09:01] LABS: ANION GAP 13.1 mmol/L (8-16); CALCIUM 9.5 mg/dL (8.4-10.2); CREATININE, SERUM 0.99 mg/dL (0.72-1.25); POTASSIUM 4.1 mmol/L (3.5-5.1)
== END | disposition home or self-care (01) ==
LOC: CATH LAB 12:01
PROVIDERS: ATTEND Internal Medicine Interventional Cardiology
DX: I25.118 Atherosclerotic heart disease of native coronary artery with other forms of angina pectoris (principal); I73.9 Peripheral vascular disease, unspecified; I65.23 Occlusion and stenosis of bilateral carotid arteries; I71.61 Supraceliac aneurysm of the thoracoabdominal aorta, without rupture; I10 Essential (primary) hypertension; E78.01 Familial hypercholesterolemia; Z01.812 Encounter for preprocedural laboratory examination; Z79.899 Other long term (current) drug therapy; Z79.02 Long term (current) use of antithrombotics/antiplatelets; Z79.82 Long term (current) use of aspirin; Z68.31 Body mass index [BMI] 31.0-31.9, adult
CPT/HCPCS: 36415 ×2; 76937; 80048; 80053; 80061; 85025 ×2; 93454; C1760; C1769 ×2; C1887 ×2; C1894; J1644; J2001; J2250; J3010; J7030; Q9967; 99152; 99153

== ENCOUNTER → 2023-03-22 | Outpatient (REF) | payer BC, MEDICARE ==
[~2023-03-22] MED LIST changes: -ALPRAZOLAM 0.5 MG TAB ONE; -DIPHENHYDRAMINE HCL 25 MG CAP ONE; -FENTANYL CITRATE/PF 100MCG/2 ML INJ ONE; -HEPARIN SOD (PORCINE) 1000 UNIT/ML 30ML ONE; -HEPARIN SOD/SOD CHLORIDE 2,000 ML ONE; -IOPAMIDOL 370 MG/ML 100 ML INFUS..BTL INJ ONE; -LIDOCAINE HCL 2% LOCAL 20 ML VIAL ONE; -MIDAZOLAM HCL 2 MG/2 ML VIAL ONE; -NITROGLYCERIN/D5W 200 MCG/ML 250 ML ONE; -SODIUM CHLORIDE 0.9% 1000ML 1,000 ML ONE; -VERAPAMIL HCL 2.5 MG/ML 2 ML VIAL ONE
[2023-03-22 11:37] LABS: BASOPHILS # (AUTO) 0.1 (0.0-0.1); BASOPHILS % 0.6 % (0.0-1.0); EOSINOPHILS # (AUTO) 0.3 (0.0-0.4); EOSINOPHILS % 2.9 % (0.0-6.0); HEMOGLOBIN 13.5 g/dL (14.0-18.0); LYMPHOCYTES % 19.6 % (18.0-39.1); MEAN CORPUSCULAR HGB CONC 32.9 g/dL (31-35); MEAN CORPUSCULAR VOLUME 88.2 fL (81-99); MONOCYTES # (AUTO) 1.4 (0.2-0.8); MONOCYTES % 13.3 % (4.4-11.3); NEUTROPHILS # (AUTO) 6.6 (2.1-6.9); NEUTROPHILS % 63.4 % (38.7-80.0); PLATELET COUNT 317 x10e3/uL (140-360); RED BLOOD COUNT 4.65 x10e6/uL (4.3-5.7); RED CELL DISTRIBUTION WIDTH 14.9 % (11.7-14.4); WHITE BLOOD COUNT 10.33 x10e3/uL (4.8-10.8)
[2023-03-22 11:56] LABS: ALBUMIN 3.9 g/dL (3.5-5.0); ALBUMIN/GLOBULIN RATIO 0.9 (0.8-2.0); ANION GAP 15.7 mmol/L (8-16); CALCIUM 10.1 mg/dL (8.4-10.2); CHOL/HDL RATIO 2.5 (3.9-4.7); CREATININE, SERUM 0.78 mg/dL (0.72-1.25)
[2023-03-22 12:01] LABS: POTASSIUM 2.7 mmol/L (3.5-5.1)
== END ==
LOC: LAB 10:56
PROVIDERS: ATTEND Internal Medicine
DX: E87.6 Hypokalemia (principal)
CPT/HCPCS: 36415; 80053; 80061; 85025

== ENCOUNTER → 2023-04-24 | Outpatient (REF) | payer MEDICARE, BC | LOC: MRI 07:39 | PROVIDERS: ATTEND Internal Medicine | DX: M25.511 Pain in right shoulder (principal) | CPT/HCPCS: 72141 ==

== ENCOUNTER 2023-06-08 18:14 | Emergency (ER) | payer MEDICARE, BC ==
[~2023-06-08] VITALS: Ht 162.6 cm; Wt 81.6 kg
[~2023-06-08 18:14] MED LIST changes: +AMOX TR-K CLV1 EAC2 PO
[2023-06-08] MEDS ORDERED: SODIUM CHLORIDE 0.9% IV ONE (18:50)
[2023-06-08] MEDS ORDERED: IRON SUCROSE IV ONE (18:50)
[2023-06-08 21:51] VITALS: BP 132/75; O2SAT 100
== END 2023-06-08 20:55 | disposition home or self-care (01) ==
LOC: ER 18:28
DX: D50.9 Iron deficiency anemia, unspecified (principal); I10 Essential (primary) hypertension; I49.8 Other specified cardiac arrhythmias
CPT/HCPCS: 99283; J1756; J7050

== ENCOUNTER → 2023-12-18 | Outpatient (REF) | payer MEDICARE, BC ==
[~2023-12-18] MED LIST changes: +SODIUM FERRIC GLUCONATE COMPLX 125 MG in SODIUM CHLORIDE 0.9% 100 ML IV ONE
[2023-12-18 15:58] LABS: BASOPHILS % 0.2 % (0.0-1.0); EOSINOPHILS # (AUTO) 0.2 (0.0-0.4); EOSINOPHILS % 1.1 % (0.0-6.0); HEMATOCRIT 35.6 % (38.2-49.6); HEMOGLOBIN 11.6 g/dL (14.0-18.0); LYMPHOCYTES # (AUTO) 1.3 (1.0-3.2); LYMPHOCYTES % 7.1 % (18.0-39.1); MEAN CORPUSCULAR HEMOGLOBIN 31.2 pg (28-32); MEAN CORPUSCULAR HGB CONC 32.6 g/dL (31-35); MEAN CORPUSCULAR VOLUME 95.7 fL (81-99); MONOCYTES # (AUTO) 2.1 (0.2-0.8); MONOCYTES % 10.8 % (4.4-11.3); NEUTROPHILS # (AUTO) 15.2 (2.1-6.9); NEUTROPHILS % 80.2 % (38.7-80.0); PLATELET COUNT 314 x10e3/uL (140-360); RED BLOOD COUNT 3.72 x10e6/uL (4.3-5.7); RETICULOCYTE % 1.6 % (0.8-2.2)
[2023-12-18 16:20] LABS: ALBUMIN 2.9 g/dL (3.5-5.0); ALBUMIN/GLOBULIN RATIO 0.7 (0.8-2.0); ANION GAP 13.1 mmol/L (8-16); BILIRUBIN,TOTAL 0.5 mg/dL (0.2-1.2); CALCIUM 8.9 mg/dL (8.4-10.2); CHOL/HDL RATIO 2.6 (3.9-4.7); CREATININE, SERUM 0.93 mg/dL (0.72-1.25); MAGNESIUM 2.2 MG/DL (1.3-2.1); POTASSIUM 4.1 mmol/L (3.5-5.1); TOTAL PROTEIN 6.8 g/dL (6.5-8.1)
[2023-12-18 16:40] LABS: FERRITIN 189.37 ng/mL (21.81-274.66); THYROID STIMULATING HORMONE 0.468 uIU/mL (0.350-4.940)
[2023-12-18 17:08] LABS: FOLATE 17.8 ng/mL (7.0-15.4)
== END ==
LOC: RAD 09:22
PROVIDERS: ATTEND Internal Medicine
DX: D64.9 Anemia, unspecified (principal)
CPT/HCPCS: 36415; 80053; 80061; 82607; 82728; 82746; 83540; 83735; 84443; 84466; 85025; 85045

== ENCOUNTER 2023-12-24 18:27 | Emergency (ER) | payer MEDICARE, BC ==
[~2023-12-24] VITALS: Ht 170.2 cm; Wt 84.8 kg
[~2023-12-24 18:27] MED LIST changes: -SODIUM FERRIC GLUCONATE COMPLX 125 MG in SODIUM CHLORIDE 0.9% 100 ML IV ONE
[2023-12-24 18:45] VITALS: PULSE 73; RESP 18; TEMP 98.4
[2023-12-24] MEDS: SODIUM FERRIC GLUCONATE COMPLX 125 MG in SODIUM CHLORIDE 0.9% 100 ML IV STA (19:19)
[2023-12-24 20:46] VITALS: BP 97/72; PULSE 67; RESP 19; TEMP 98; O2SAT 98
== END 2023-12-24 20:55 | disposition home or self-care (01) ==
LOC: ER 18:32
DX: R53.1 Weakness (principal); I10 Essential (primary) hypertension; D50.9 Iron deficiency anemia, unspecified
CPT/HCPCS: 99283; J2916; J7050

== ENCOUNTER → 2023-12-25 | Outpatient (REF) | payer MEDICARE, BC | LOC: MRI 09:46 | PROVIDERS: ATTEND Internal Medicine | DX: M25.512 Pain in left shoulder (principal); M19.012 Primary osteoarthritis, left shoulder ==

== ENCOUNTER 2024-01-07 07:05 | Outpatient (RCR) | payer MEDICARE, BC | END 2024-01-12 | LOC: PT 07:05 | PROVIDERS: ATTEND Internal Medicine | DX: M75.22 Bicipital tendinitis, left shoulder (principal) ==

== ENCOUNTER → 2024-02-11 | Outpatient (RCR) | payer MEDICARE, BC | LOC: PT 01-18 07:20 | PROVIDERS: ATTEND Internal Medicine | DX: M75.22 Bicipital tendinitis, left shoulder (principal); M25.512 Pain in left shoulder ==

== ENCOUNTER → 2024-03-13 | Outpatient (RCR) | payer MEDICARE, BC | LOC: PT 02-14 06:38 | PROVIDERS: ATTEND Internal Medicine | DX: M75.102 Unspecified rotator cuff tear or rupture of left shoulder, not specified as traumatic (principal); M75.22 Bicipital tendinitis, left shoulder; M62.81 Muscle weakness (generalized); M25.512 Pain in left shoulder; M25.612 Stiffness of left shoulder, not elsewhere classified ==

== ENCOUNTER → 2024-04-09 | Outpatient (REF) | payer BC, MEDICARE ==
[2024-04-09 12:11] LABS: BASOPHILS # (AUTO) 0.1 (0.0-0.1); BASOPHILS % 0.4 % (0.0-1.0); EOSINOPHILS # (AUTO) 0.2 (0.0-0.4); EOSINOPHILS % 1.1 % (0.0-6.0); HEMATOCRIT 44.2 % (38.2-49.6); HEMOGLOBIN 13.5 g/dL (14.0-18.0); LYMPHOCYTES % 7.5 % (18.0-39.1); MEAN CORPUSCULAR HEMOGLOBIN 30.8 pg (28-32); MEAN CORPUSCULAR HGB CONC 30.5 g/dL (31-35); MEAN CORPUSCULAR VOLUME 100.7 fL (81-99); MONOCYTES # (AUTO) 0.9 (0.2-0.8); MONOCYTES % 6.7 % (4.4-11.3); NEUTROPHILS # (AUTO) 11.3 (2.1-6.9); PLATELET COUNT 261 x10e3/uL (140-360); RED BLOOD COUNT 4.39 x10e6/uL (4.3-5.7); RED CELL DISTRIBUTION WIDTH 13.7 % (11.7-14.4)
[2024-04-09 12:35] LABS: ALBUMIN 3.6 g/dL (3.5-5.0); ALBUMIN/GLOBULIN RATIO 0.9 (0.8-2.0); ANION GAP 17.9 mmol/L (8-16); BILIRUBIN,TOTAL 0.3 mg/dL (0.2-1.2); CALCIUM 10.1 mg/dL (8.4-10.2); CHOL/HDL RATIO 2.4 (3.9-4.7); CREATININE, SERUM 0.91 mg/dL (0.72-1.25); POTASSIUM 3.9 mmol/L (3.5-5.1); TOTAL PROTEIN 7.8 g/dL (6.5-8.1)
[2024-04-10 11:53] LABS: % IRON SATURATION 16 % (15-50); IRON 79 ug/dL (65-175); TOTAL IRON BINDING CAPACITY 483 ug/dL (261-478); TRANSFERRIN 345 mg/dL (174-364)
== END ==
LOC: LAB 04-08 11:37
PROVIDERS: ATTEND Internal Medicine
DX: D64.9 Anemia, unspecified (principal)
CPT/HCPCS: 36415; 80053; 80061; 82607; 82746; 83036; 83540; 84466; 85025; 85045

== ENCOUNTER 2024-06-03 23:20 | Emergency (ER) | payer MEDICARE, BC ==
[~2024-06-03] VITALS: Ht 170.2 cm; Wt 84.8 kg
[2024-06-03 23:22] VITALS: PULSE 82; RESP 16; TEMP 98.7; O2SAT 98
[2024-06-03] MEDS: KETOROLAC TROMETHAMINE 30 MG/ML VIAL IM STA (23:37)
[2024-06-03] MEDS ORDERED: KETOROLAC TROME10 MG PO (23:51)
[2024-06-03] MEDS ORDERED: ULTRAM 50MG50 MG PO (23:51)
== END 2024-06-04 00:26 | disposition home or self-care (01) ==
LOC: ER 23:24
DX: M79.642 Pain in left hand (principal); S52.592A Other fractures of lower end of left radius, initial encounter for closed fracture; S60.811A Abrasion of right wrist, initial encounter; W01.0XXA Fall on same level from slipping, tripping and stumbling without subsequent striking against object, initial encounter; Y93.01 Activity, walking, marching and hiking; Y92.89 Other specified places as the place of occurrence of the external cause; I10 Essential (primary) hypertension; D50.9 Iron deficiency anemia, unspecified
CPT/HCPCS: 29125; 73110; 73200 ×2; 99283; J1885

== ENCOUNTER → 2024-06-30 | Outpatient (REF) | payer BC, MEDICARE ==
[~2024-06-30] MED LIST changes: +KETOROLAC TROME10 MG PO; +ULTRAM 50MG50 MG PO
[2024-06-30 12:23] LABS: BASOPHILS % 0.2 % (0.0-1.0); EOSINOPHILS # (AUTO) 0.1 (0.0-0.4); EOSINOPHILS % 0.7 % (0.0-6.0); HEMATOCRIT 36.5 % (38.2-49.6); HEMOGLOBIN 11.9 g/dL (14.0-18.0); LYMPHOCYTES # (AUTO) 1.1 (1.0-3.2); MEAN CORPUSCULAR HGB CONC 32.6 g/dL (31-35); MEAN CORPUSCULAR VOLUME 95.1 fL (81-99); MONOCYTES % 5.5 % (4.4-11.3); NEUTROPHILS # (AUTO) 15.3 (2.1-6.9); NEUTROPHILS % 87.1 % (38.7-80.0); PLATELET COUNT 373 x10e3/uL (140-360); RED BLOOD COUNT 3.84 x10e6/uL (4.3-5.7); RED CELL DISTRIBUTION WIDTH 13.5 % (11.7-14.4); RETICULOCYTE % 1.6 % (0.8-2.2); WHITE BLOOD COUNT 17.57 x10e3/uL (4.8-10.8)
[2024-06-30 12:50] LABS: ALBUMIN 3.4 g/dL (3.5-5.0); ALBUMIN/GLOBULIN RATIO 0.8 (0.8-2.0); ANION GAP 15.2 mmol/L (8-16); BILIRUBIN,TOTAL 0.2 mg/dL (0.2-1.2); CALCIUM 10.1 mg/dL (8.4-10.2); CREATININE, SERUM 1.03 mg/dL (0.72-1.25); MAGNESIUM 2.5 MG/DL (1.3-2.1); POTASSIUM 4.2 mmol/L (3.5-5.1); TOTAL PROTEIN 7.6 g/dL (6.5-8.1)
[2024-06-30 13:10] LABS: FERRITIN 37.36 ng/mL (21.81-274.66)
== END ==
LOC: LAB 09:33
PROVIDERS: ATTEND Internal Medicine
DX: R06.02 Shortness of breath (principal); D64.9 Anemia, unspecified
CPT/HCPCS: 36415; 71046; 80053; 82728; 83540; 83735; 83880; 84152; 84402; 84466; 85025; 85045; 93306

== ENCOUNTER → 2024-07-22 | Outpatient (REF) | payer BC, MEDICARE ==
[2024-07-22 15:03] LABS: BASOPHILS # (AUTO) 0.1 (0.0-0.1); BASOPHILS % 0.6 % (0.0-1.0); EOSINOPHILS # (AUTO) 0.2 (0.0-0.4); EOSINOPHILS % 1.8 % (0.0-6.0); HEMATOCRIT 33.7 % (38.2-49.6); HEMOGLOBIN 10.8 g/dL (14.0-18.0); LYMPHOCYTES # (AUTO) 1.7 (1.0-3.2); LYMPHOCYTES % 17.1 % (18.0-39.1); MEAN CORPUSCULAR HEMOGLOBIN 30.1 pg (28-32); MEAN CORPUSCULAR VOLUME 93.9 fL (81-99); MONOCYTES # (AUTO) 1.3 (0.2-0.8); MONOCYTES % 13.1 % (4.4-11.3); NEUTROPHILS # (AUTO) 6.6 (2.1-6.9); NEUTROPHILS % 66.9 % (38.7-80.0); PLATELET COUNT 329 x10e3/uL (140-360); RED BLOOD COUNT 3.59 x10e6/uL (4.3-5.7); RED CELL DISTRIBUTION WIDTH 13.6 % (11.7-14.4)
[2024-07-22 15:29] LABS: ALBUMIN/GLOBULIN RATIO 0.8 (0.8-2.0); ANION GAP 12.8 mmol/L (8-16); BILIRUBIN,TOTAL 0.2 mg/dL (0.2-1.2); CALCIUM 9.2 mg/dL (8.4-10.2); CHOL/HDL RATIO 2.9 (3.9-4.7); CREATININE, SERUM 1.03 mg/dL (0.72-1.25); MAGNESIUM 2.2 MG/DL (1.3-2.1); POTASSIUM 3.8 mmol/L (3.5-5.1); TOTAL PROTEIN 6.9 g/dL (6.5-8.1)
[2024-07-22 17:30] LABS: BILIRUBIN,URINE NEGATIVE (NEGATIVE); CLARITY,URINE CLEAR (CLEAR); COLOR,URINE YELLOW (YELLOW); GLUCOSE, URINE NEGATIVE (NEGATIVE); KETONES,URINE NEGATIVE (NEGATIVE); LEUKOCYTE ESTERASE ,URINE NEGATIVE (NEGATIVE); NITRITE,URINE NEGATIVE (NEGATIVE); PH,URINE 7.5 (5 - 7); PROTEIN,URINE DIPSTICK NEGATIVE (NEGATIVE); URINE UROBILINOGEN 0.2 mg/dL (0.2 - 1)
[2024-07-22 18:09] LABS: TOTAL PROTEIN, URINE < 6.8 mg/dL (1-14)
[2024-07-22 18:21] LABS: CREATININE,URINE RANDOM 58.32 mg/dL (63-166)
== END ==
LOC: LAB 13:55
PROVIDERS: ATTEND Internal Medicine
DX: D64.9 Anemia, unspecified (principal); E87.6 Hypokalemia; E83.42 Hypomagnesemia; N18.9 Chronic kidney disease, unspecified
CPT/HCPCS: 36415; 80053; 80061; 81003; 82570; 83735; 84156; 85025

== ENCOUNTER → 2024-09-30 | Outpatient (REF) | payer MEDICARE, BC ==
[2024-09-30 16:19] LABS: BASOPHILS # (AUTO) 0.1 (0.0-0.1); BASOPHILS % 0.7 % (0.0-1.0); EOSINOPHILS # (AUTO) 0.4 (0.0-0.4); EOSINOPHILS % 3.4 % (0.0-6.0); HEMATOCRIT 37.2 % (38.2-49.6); HEMOGLOBIN 12.5 g/dL (14.0-18.0); LYMPHOCYTES # (AUTO) 1.9 (1.0-3.2); LYMPHOCYTES % 18.1 % (18.0-39.1); MEAN CORPUSCULAR HEMOGLOBIN 30.4 pg (28-32); MEAN CORPUSCULAR HGB CONC 33.6 g/dL (31-35); MEAN CORPUSCULAR VOLUME 90.5 fL (81-99); MONOCYTES # (AUTO) 1.3 (0.2-0.8); MONOCYTES % 12.8 % (4.4-11.3); NEUTROPHILS # (AUTO) 6.8 (2.1-6.9); NEUTROPHILS % 64.7 % (38.7-80.0); PLATELET COUNT 298 x10e3/uL (140-360); RED BLOOD COUNT 4.11 x10e6/uL (4.3-5.7); RETICULOCYTE % 2.1 % (0.8-2.2); WHITE BLOOD COUNT 10.46 x10e3/uL (4.8-10.8)
[2024-09-30 16:47] LABS: ALBUMIN 3.6 g/dL (3.5-5.0); ALBUMIN/GLOBULIN RATIO 0.9 (0.8-2.0); ANION GAP 17.3 mmol/L (8-16); BILIRUBIN,TOTAL 0.3 mg/dL (0.2-1.2); CALCIUM 9.5 mg/dL (8.4-10.2); CREATININE, SERUM 1.54 mg/dL (0.72-1.25); TOTAL PROTEIN 7.6 g/dL (6.5-8.1)
[2024-09-30 17:01] LABS: POTASSIUM 2.3 mmol/L (3.5-5.1)
[2024-09-30 17:08] LABS: FERRITIN 53.74 ng/mL (21.81-274.66)
== END ==
LOC: LAB 12:54
PROVIDERS: ATTEND Internal Medicine
DX: D64.9 Anemia, unspecified (principal)
CPT/HCPCS: 36415; 80053; 82607; 82728; 82746; 83540; 84466; 85025; 85045